=== PATIENT | female | born 1930 | race Two or more races ===

== ENCOUNTER 2017-07-21 16:14 | Emergency (ER) | payer MEDICARE, MEDICAID ==
[~2017-07-21] VITALS: Ht 162.6 cm; Wt 59.0 kg
[~2017-07-21 16:14] MED LIST: LEVO500T21 PO
[2017-07-21 16:21] VITALS: BP 150/96
[2017-07-21 17:40] LABS: Urine Bacteria NONE SEEN /hpf (None Seen); Urine Blood 1+ /uL (Negative); Urine Specific Gravity 1.015 (1.001-1.035); Urine WBC 2 /hpf (0 - 5)
== END 2017-07-21 22:09 | disposition home or self-care (01) ==
LOC: EDBD 16:14 → ER 16:23
DX: F03.90 Unspecified dementia, unspecified severity, without behavioral disturbance, psychotic disturbance, mood disturbance, and anxiety (principal); I10 Essential (primary) hypertension; Z86.73 Personal history of transient ischemic attack (TIA), and cerebral infarction without residual deficits
CPT/HCPCS: 81001; 93005

== ENCOUNTER 2017-07-31 10:07 | Inpatient (IN) | payer MEDICARE, MEDICAID ==
[~2017-07-31] VITALS: Ht 152.4 cm; Wt 55.1 kg
[2017-07-31 11:54] LABS: Basophils # (auto) 0 uL; Basophils % (auto) 0.3 % (0.0-2.0); Eosinophils # (auto) 0 uL; Eosinophils % (auto) 0.4 % (0.0-7.0); Hematocrit 34.8 % (36.0-46.0); Hemoglobin 11.5 g/dL (12.2-16.2); Lymphocytes # (auto) 0.5 uL; Mean Corpuscular Hemoglobin 29.7 pg (28.0-32.0); Mean Corpuscular Hgb Conc. 33.1 g/dL (32.0-36.0); Mean Corpuscular Volume 89.8 fL (80.0-100.0); Monocytes # (auto) 0.9 uL; Monocytes % (auto) 9.5 % (0.0-12.0); Neutrophils # (auto) 7.6 uL; Neutrophils % (auto) 83.8 % (37.0-80.0); Nucleated Red Blood Cells % 0.1 %; Platelet Count (auto) 359 10^3/uL (140-450); Red Blood Cells 3.88 10^6/uL (4.0-5.20); Red Cell Distribution Width 14.7 % (11.8-14.3); White Blood Cell 9.1 10^3/uL (4.4-10.8)
[2017-07-31] MEDS ORDERED: SODIUM CHLORIDE 0.9% 1,000 ML IVB ONE (12:07)
[2017-07-31 12:51] LABS: INR 1.07 (0.9-1.15); Partial Thromboplastin Time 28.1 sec (22.64-33.71); Prothrombin Time 11.7 sec (9.37-12.3)
[2017-07-31 12:53] LABS: Urine Bacteria NONE SEEN /hpf (None Seen); Urine Blood Negative /uL (Negative); Urine Specific Gravity 1.028 (1.001-1.035); Urine WBC 1 /hpf (0 - 5)
[2017-07-31 13:53] LABS: Potassium 3.8 mmol/L (3.5-5.1)
[2017-07-31 13:54] LABS: Albumin 3.1 g/dL (3.4-5.0); BUN/Creatinine Ratio 17.6; Bilirubin, Total 0.4 mg/dL (0.2-1.0); Calcium 8.6 mg/dL (8.5-10.1); Total Protein 6.7 g/dL (6.4-8.2)
[2017-07-31] MEDS ORDERED: ONDANSETRON HCL 4 MG/2 ML VIAL IV ONE (14:00)
[2017-07-31] MEDS ORDERED: MORPHINE SULF INJ 2 MG/ML SYRINGE 1ML IV ONE (14:00)
[2017-07-31] MEDS ORDERED: TEMAZEPAM 15 MG CAP PO PRN (14:30)
[2017-07-31] MEDS ORDERED: ACETAMINOPHEN 500 MG TAB PO PRN (14:30)
[2017-07-31] MEDS: SODIUM CHLORIDE 0.9% 1,000 ML IV SCH (14:49)
[2017-07-31] MEDS: MORPHINE SULF INJ 2 MG/ML SYRINGE 1ML IV PRN (17:34)
[2017-07-31] MEDS: LORazepam 0.5 MG TAB PO PRN (17:35)
[2017-07-31] MEDS: PROMETHAZINE HCL 25 MG/ML 1ML IV PRN (17:35)
[2017-07-31] MEDS ORDERED: LORazepam 2MG/ML-1ML VIAL ONE (17:44)
[2017-07-31] MEDS ORDERED: LORazepam 2MG/ML-1ML VIAL IV ONE (18:00)
[2017-08-01] MEDS: SODIUM CHLORIDE 0.9% 1,000 ML IV SCH ×2 (02:51→14:00)
[2017-08-01] MEDS ORDERED: cefTRIAXone 1GM/10ml IVPUSH 10 ML IV ONE (13:45)
[2017-08-01] MEDS: PROMETHAZINE HCL 25 MG/ML 1ML IV PRN ×2 (15:05→23:22)
[2017-08-01] MEDS: MORPHINE SULF INJ 2 MG/ML SYRINGE 1ML IV PRN ×2 (15:05→23:22)
[2017-08-01] MEDS: LORazepam 0.5 MG TAB PO PRN (16:38)
[2017-08-01 22:53] VITALS: BP 139/81
[2017-08-01 23:00] VITALS: BP 139/81
[2017-08-02] MEDS: PROMETHAZINE HCL 25 MG/ML 1ML IV PRN (05:30)
[2017-08-02] MEDS: MORPHINE SULF INJ 2 MG/ML SYRINGE 1ML IV PRN ×2 (05:43→21:25)
[2017-08-02] MEDS: SODIUM CHLORIDE 0.9% 1,000 ML IV SCH ×2 (05:43→16:15)
[2017-08-02 06:22] LABS: Basophils # (auto) 0 uL; Basophils % (auto) 0.2 % (0.0-2.0); Eosinophils # (auto) 0.1 uL; Eosinophils % (auto) 0.7 % (0.0-7.0); Hematocrit 35.4 % (36.0-46.0); Hemoglobin 11.7 g/dL (12.2-16.2); Lymphocytes % (auto) 11.3 % (10.0-50.0); Mean Corpuscular Hemoglobin 29.9 pg (28.0-32.0); Mean Corpuscular Volume 90.4 fL (80.0-100.0); Monocytes # (auto) 1.1 uL; Monocytes % (auto) 12.8 % (0.0-12.0); Neutrophils # (auto) 6.3 uL; Platelet Count (auto) 353 10^3/uL (140-450); Red Blood Cells 3.91 10^6/uL (4.0-5.20); Red Cell Distribution Width 14.9 % (11.8-14.3); White Blood Cell 8.4 10^3/uL (4.4-10.8)
[2017-08-02 08:00] VITALS: BP 135/82
[2017-08-02] MEDS ORDERED: INFLUENZA QUAD 2017-2018 0.5 ML SYRG IM ONE (08:30)
[2017-08-02 09:00] VITALS: BP 135/82
[2017-08-02] MEDS: cefTRIAXone 1GM/10ml IVPUSH 10 ML IV SCH (09:00)
[2017-08-02] MEDS ORDERED: ceFAZolin 1GM/50ML 50 ML IV ONE (09:33)
[2017-08-02] MEDS ORDERED: ENOXAPARIN SOD 30 MG/0.3 ML SYRINGE SC SCH (10:00)
[2017-08-02] MEDS ORDERED: MORPHINE SULF(PF) 0.5MG/ML 10ML VIAL ONE (10:15)
[2017-08-02] MEDS ORDERED: MIDAZOLAM HCL 1MG/1ML-2 ML VIAL ONE (10:16)
[2017-08-02] MEDS ORDERED: ePHEDrine SULFATE 50 MG/ML AMP ONE (10:39)
[2017-08-02] MEDS ORDERED: STERILE WATER 10 ML ONE ×2 (10:39→11:28)
[2017-08-02] MEDS ORDERED: PROPOFOL 10 MG/ML 20 ML IV ONE (10:45)
[2017-08-02] MEDS ORDERED: cefTRIAXone 1GM/50ML D5W 50 ML IV ONE (10:55)
[2017-08-02] MEDS ORDERED: PHENYLEPHRINE HCL 10 MG/ML VL ONE (11:28)
[2017-08-02] MEDS ORDERED: ONDANSETRON HCL 4 MG/2 ML VIAL IV PRN (12:00)
[2017-08-02] MEDS ORDERED: diphenhdrAMINE HCL 50 MG/1 ML VL IV PRN (12:00)
[2017-08-02] MEDS ORDERED: hydrALAZINE HCL 20 MG/ML VL IV PRN (12:00)
[2017-08-02] MEDS ORDERED: ePHEDrine SULFATE 50 MG/ML AMP IV PRN (12:00)
[2017-08-02] MEDS ORDERED: ONDANSETRON HCL 4 MG/2 ML VIAL IV ONE (12:00)
[2017-08-02] MEDS ORDERED: HYDROmorphone HCL 2 MG/ML VL IV PRN (12:00)
[2017-08-02] MEDS ORDERED: NALOXONE HCL 0.4 MG/ML VIAL IV PRN ×2 (12:00)
[2017-08-02 14:20] VITALS: BP 120/66
[2017-08-02] MEDS: ceFAZolin 1GM/50ML 50 ML IV SCH (16:27)
[2017-08-02 17:00] VITALS: BP 164/82
[2017-08-02 18:47] VITALS: BP 147/71
[2017-08-03] MEDS: ceFAZolin 1GM/50ML 50 ML IV SCH ×2 (00:51→09:05)
[2017-08-03] MEDS: LORazepam 0.5 MG TAB PO PRN ×2 (01:44→13:38)
[2017-08-03] MEDS: MORPHINE SULF INJ 2 MG/ML SYRINGE 1ML IV PRN ×3 (02:03→13:38)
[2017-08-03] MEDS: SODIUM CHLORIDE 0.9% 1,000 ML IV SCH ×2 (04:34→17:19)
[2017-08-03 05:32] LABS: Hematocrit 30.5 % (36.0-46.0); Hemoglobin 10.4 g/dL (12.2-16.2)
[2017-08-03 09:00] VITALS: BP 151/83
[2017-08-03] MEDS: ENOXAPARIN SOD 40 MG/0.4 ML SYRINGE SC SCH (09:03)
[2017-08-03] MEDS: cefTRIAXone 1GM/10ml IVPUSH 10 ML IV SCH (09:05)
[2017-08-03 13:00] VITALS: BP 154/84
[2017-08-03 17:00] VITALS: BP 151/81
[2017-08-03 22:00] VITALS: BP 113/62
[2017-08-04 05:01] VITALS: BP 122/68
[2017-08-04 05:52] LABS: Basophils # (auto) 0 uL; Basophils % (auto) 0.3 % (0.0-2.0); Eosinophils # (auto) 0.1 uL; Hematocrit 27.9 % (36.0-46.0); Hemoglobin 9.5 g/dL (12.2-16.2); Lymphocytes # (auto) 0.8 uL; Lymphocytes % (auto) 8.7 % (10.0-50.0); Mean Corpuscular Hemoglobin 30.3 pg (28.0-32.0); Mean Corpuscular Volume 89.3 fL (80.0-100.0); Monocytes # (auto) 1.1 uL; Monocytes % (auto) 11.7 % (0.0-12.0); Neutrophils # (auto) 7.3 uL; Neutrophils % (auto) 78.3 % (37.0-80.0); Platelet Count (auto) 300 10^3/uL (140-450); Red Blood Cells 3.13 10^6/uL (4.0-5.20); Red Cell Distribution Width 14.4 % (11.8-14.3); White Blood Cell 9.4 10^3/uL (4.4-10.8)
[2017-08-04] MEDS: SODIUM CHLORIDE 0.9% 1,000 ML IV SCH ×2 (06:09→18:07)
[2017-08-04 06:16] LABS: BUN/Creatinine Ratio 14.6; Calcium 7.5 mg/dL (8.5-10.1); Potassium 3.3 mmol/L (3.5-5.1)
[2017-08-04 08:00] VITALS: BP 105/56
[2017-08-04] MEDS: cefTRIAXone 1GM/10ml IVPUSH 10 ML IV SCH (08:40)
[2017-08-04] MEDS: BOOST 8 ounces PO SCH ×3 (08:45→18:06)
[2017-08-04 09:00] VITALS: BP 105/56
[2017-08-04] MEDS: MEGESTROL ACET 400MG/10ML ORAL SUSP GT SCH ×2 (10:49→21:36)
[2017-08-04] MEDS: ENOXAPARIN SOD 40 MG/0.4 ML SYRINGE SC SCH (10:50)
[2017-08-04] MEDS: HYDROcodone-ACET 5/325MG TAB PO PRN (12:14)
[2017-08-04 13:00] VITALS: BP 96/59
[2017-08-04 17:26] VITALS: BP 99/55
[2017-08-04 21:40] VITALS: BP 100/64
[2017-08-04] MEDS: LACTULOSE 20Gm/30ML SOLN PO PRN (21:58)
[2017-08-05] VITALS (7 sets, daily range): BP systolic 90–121; BP diastolic 44–66
[2017-08-05] MEDS: SODIUM CHLORIDE 0.9% 1,000 ML IV SCH ×2 (05:41→19:19)
[2017-08-05 06:13] LABS: Basophils # (auto) 0 uL; Eosinophils # (auto) 0.2 uL; Hemoglobin 8.3 g/dL (12.2-16.2); Lymphocytes # (auto) 1.1 uL; Monocytes # (auto) 0.8 uL; Platelet Count (auto) 296 10^3/uL (140-450); Red Cell Distribution Width 14.6 % (11.8-14.3)
[2017-08-05 06:16] LABS: Basophils % (auto) 0.3 % (0.0-2.0); Eosinophils % (auto) 2.5 % (0.0-7.0); Hematocrit 24.6 % (36.0-46.0); Lymphocytes % (auto) 15.4 % (10.0-50.0); Mean Corpuscular Hemoglobin 30.4 pg (28.0-32.0); Mean Corpuscular Hgb Conc. 33.9 g/dL (32.0-36.0); Mean Corpuscular Volume 89.5 fL (80.0-100.0); Monocytes % (auto) 11.3 % (0.0-12.0); Neutrophils % (auto) 70.5 % (37.0-80.0); Red Blood Cells 2.75 10^6/uL (4.0-5.20)
[2017-08-05 06:41] LABS: Albumin 1.9 g/dL (3.4-5.0); BUN/Creatinine Ratio 20.3; Bilirubin, Total 0.6 mg/dL (0.2-1.0); Calcium 7.5 mg/dL (8.5-10.1); Potassium 3.1 mmol/L (3.5-5.1); Total Protein 5.1 g/dL (6.4-8.2)
[2017-08-05] MEDS: cefTRIAXone 1GM/10ml IVPUSH 10 ML IV SCH (08:26)
[2017-08-05] MEDS: BOOST 8 ounces PO SCH ×3 (08:26→18:43)
[2017-08-05] MEDS ORDERED: POTASSIUM CHL 10% (20 MEQ/15ML) 15ml ORAL SOLN PO ONE (10:00)
[2017-08-05] MEDS: ENOXAPARIN SOD 40 MG/0.4 ML SYRINGE SC SCH (10:04)
[2017-08-05] MEDS: MEGESTROL ACET 400MG/10ML ORAL SUSP GT SCH ×2 (10:05→22:00)
[2017-08-05 11:53] LABS: Hemoglobin 9.5 g/dL (12.2-16.2)
[2017-08-05] MEDS: Boost Breeze 8 Ounces PO SCH (18:43)
[2017-08-06 06:21] VITALS: BP 152/63
[2017-08-06 07:32] LABS: Hematocrit 27.6 % (36.0-46.0); Hemoglobin 9.2 g/dL (12.2-16.2)
[2017-08-06 07:55] LABS: BUN/Creatinine Ratio 17.6; Calcium 8.1 mg/dL (8.5-10.1); Potassium 3.5 mmol/L (3.5-5.1)
[2017-08-06] MEDS: ENOXAPARIN SOD 40 MG/0.4 ML SYRINGE SC SCH (09:05)
[2017-08-06] MEDS: MEGESTROL ACET 400MG/10ML ORAL SUSP GT SCH ×2 (09:05→21:21)
[2017-08-06] MEDS: LACTULOSE 20Gm/30ML SOLN PO PRN (09:05)
[2017-08-06] MEDS: cefTRIAXone 1GM/10ml IVPUSH 10 ML IV SCH (09:06)
[2017-08-06] MEDS: SODIUM CHLORIDE 0.9% 1,000 ML IV SCH ×2 (09:06→21:21)
[2017-08-06] MEDS: Boost Breeze 8 Ounces PO SCH ×3 (09:06→18:00)
[2017-08-06] MEDS: BOOST 8 ounces PO SCH ×3 (09:06→18:00)
[2017-08-06 13:00] VITALS: BP 122/68
[2017-08-06 17:00] VITALS: BP 122/57
[2017-08-06 22:00] VITALS: BP 107/56
[2017-08-07 05:00] VITALS: BP 115/67
[2017-08-07] MEDS: SODIUM CHLORIDE 0.9% 1,000 ML IV SCH ×2 (05:11→21:19)
[2017-08-07 09:00] VITALS: BP 143/61
[2017-08-07] MEDS: cefTRIAXone 1GM/10ml IVPUSH 10 ML IV SCH (09:36)
[2017-08-07] MEDS: MEGESTROL ACET 400MG/10ML ORAL SUSP GT SCH ×2 (09:36→21:28)
[2017-08-07] MEDS: ENOXAPARIN SOD 40 MG/0.4 ML SYRINGE SC SCH (09:36)
[2017-08-07] MEDS: BOOST 8 ounces PO SCH ×3 (09:36→18:03)
[2017-08-07] MEDS: Boost Breeze 8 Ounces PO SCH ×3 (09:37→18:03)
[2017-08-07 13:00] VITALS: BP 110/55
[2017-08-07 17:00] VITALS: BP 125/63
[2017-08-07 22:02] VITALS: BP 101/56
[2017-08-08 04:57] VITALS: BP 124/68
[2017-08-08 08:00] VITALS: BP 119/63
[2017-08-08] MEDS: BOOST 8 ounces PO SCH ×3 (08:02→18:46)
[2017-08-08] MEDS: Boost Breeze 8 Ounces PO SCH ×3 (08:02→18:47)
[2017-08-08] MEDS: MEGESTROL ACET 400MG/10ML ORAL SUSP GT SCH ×2 (09:51→22:05)
[2017-08-08] MEDS: ENOXAPARIN SOD 40 MG/0.4 ML SYRINGE SC SCH (09:51)
[2017-08-08] MEDS: cefTRIAXone 1GM/10ml IVPUSH 10 ML IV SCH (09:52)
[2017-08-08] MEDS: SODIUM CHLORIDE 0.9% 1,000 ML IV SCH ×2 (09:52→22:19)
[2017-08-08 12:00] VITALS: BP 126/45
[2017-08-08 17:00] VITALS: BP 114/62
[2017-08-08 22:00] VITALS: BP 100/58
[2017-08-09 05:00] VITALS: BP 113/72
[2017-08-09] MEDS: Boost Breeze 8 Ounces PO SCH ×3 (08:00→17:34)
[2017-08-09] MEDS: BOOST 8 ounces PO SCH ×2 (08:00→14:49)
[2017-08-09 09:00] VITALS: BP 99/54
[2017-08-09] MEDS: ENOXAPARIN SOD 40 MG/0.4 ML SYRINGE SC SCH (10:00)
[2017-08-09] MEDS: MEGESTROL ACET 400MG/10ML ORAL SUSP GT SCH ×2 (10:48→22:33)
[2017-08-09] MEDS: cefTRIAXone 1GM/10ml IVPUSH 10 ML IV SCH (10:49)
[2017-08-09 13:00] VITALS: BP 101/50
[2017-08-09] MEDS: SODIUM CHLORIDE 0.9% 1,000 ML IV SCH (14:48)
[2017-08-09 22:00] VITALS: BP 126/53
[2017-08-10] MEDS: SODIUM CHLORIDE 0.9% 1,000 ML IV SCH ×2 (03:58→11:45)
[2017-08-10 05:00] VITALS: BP 120/47
[2017-08-10 09:00] VITALS: BP 103/55
[2017-08-10] MEDS: Boost Breeze 8 Ounces PO SCH ×3 (11:43→18:14)
[2017-08-10] MEDS: BOOST 8 ounces PO SCH ×4 (11:43→18:14)
[2017-08-10] MEDS: ENOXAPARIN SOD 40 MG/0.4 ML SYRINGE SC SCH (11:44)
[2017-08-10] MEDS: MEGESTROL ACET 400MG/10ML ORAL SUSP GT SCH ×2 (11:44→21:35)
[2017-08-10] MEDS: cefTRIAXone 1GM/10ml IVPUSH 10 ML IV SCH (11:44)
[2017-08-10 13:00] VITALS: BP 119/54
[2017-08-10 14:31] LABS: Hematocrit 29.4 % (36.0-46.0); Hemoglobin 9.6 g/dL (12.2-16.2)
[2017-08-10 17:00] VITALS: BP 136/57
[2017-08-10 22:00] VITALS: BP 101/54
[2017-08-11] MEDS: SODIUM CHLORIDE 0.9% 1,000 ML IV SCH ×2 (00:49→14:04)
[2017-08-11 05:17] VITALS: BP 121/68
[2017-08-11 09:00] VITALS: BP 108/48
[2017-08-11] MEDS: Boost Breeze 8 Ounces PO SCH ×2 (09:08→12:19)
[2017-08-11] MEDS: BOOST 8 ounces PO SCH ×2 (09:08→12:19)
[2017-08-11] MEDS: cefTRIAXone 1GM/10ml IVPUSH 10 ML IV SCH (09:09)
[2017-08-11] MEDS: MEGESTROL ACET 400MG/10ML ORAL SUSP GT SCH ×2 (09:09→22:00)
[2017-08-11] MEDS: ENOXAPARIN SOD 40 MG/0.4 ML SYRINGE SC SCH (09:09)
[2017-08-11 13:00] VITALS: BP 103/59
[2017-08-11 18:18] VITALS: BP 127/70
[2017-08-11 20:00] VITALS: BP 97/69
[2017-08-11 22:00] VITALS: BP 97/69
[2017-08-12] MEDS: SODIUM CHLORIDE 0.9% 1,000 ML IV SCH ×2 (03:06→18:15)
[2017-08-12 05:00] VITALS: BP 108/54
[2017-08-12] MEDS: HYDROcodone-ACET 5/325MG TAB PO PRN (05:11)
[2017-08-12 09:00] VITALS: BP 133/78
[2017-08-12] MEDS: ENOXAPARIN SOD 40 MG/0.4 ML SYRINGE SC SCH (10:00)
[2017-08-12] MEDS: MEGESTROL ACET 400MG/10ML ORAL SUSP GT SCH (11:16)
[2017-08-12] MEDS: cefTRIAXone 1GM/10ml IVPUSH 10 ML IV SCH (11:16)
[2017-08-12 13:00] VITALS: BP 105/69
[2017-08-12 17:00] VITALS: BP 120/68
[2017-08-12] MEDS ORDERED: MORPHINE SULFATE 10 MG/ML INJ 1ML SDV IV PRN (18:45)
== END 2017-08-12 20:30 | DRG 470 ==
LOC: EDBD 10:07 → ER 10:07 → OVERFLOW 10:08 → WEST WING 08-01 22:40
PROVIDERS: ADMIT Internal Medicine; ATTEND Internal Medicine
PROC: 0SRS01Z Replacement of Left Hip Joint, Femoral Surface with Metal Synthetic Substitute, Open Approach (ICD-10-PCS; principal; 2017-08-03)
PROC: 0MBM0ZZ Excision of Left Hip Bursa and Ligament, Open Approach (ICD-10-PCS; 2017-08-03)
DX: S72.012A Unspecified intracapsular fracture of left femur, initial encounter for closed fracture (principal); E44.0 Moderate protein-calorie malnutrition; I48.0 Paroxysmal atrial fibrillation; D64.9 Anemia, unspecified; F03.90 Unspecified dementia, unspecified severity, without behavioral disturbance, psychotic disturbance, mood disturbance, and anxiety; F32.9 Major depressive disorder, single episode, unspecified; F41.9 Anxiety disorder, unspecified; J44.9 Chronic obstructive pulmonary disease, unspecified; M70.72 Other bursitis of hip, left hip; H35.30 Unspecified macular degeneration; I12.9 Hypertensive chronic kidney disease with stage 1 through stage 4 chronic kidney disease, or unspecified chronic kidney disease; N18.3 Chronic kidney disease, stage 3 (moderate); W06.XXXA Fall from bed, initial encounter; Y92.009 Unspecified place in unspecified non-institutional (private) residence as the place of occurrence of the external cause; Z82.49 Family history of ischemic heart disease and other diseases of the circulatory system; Z86.73 Personal history of transient ischemic attack (TIA), and cerebral infarction without residual deficits; Z87.11 Personal history of peptic ulcer disease; Z90.710 Acquired absence of both cervix and uterus; Z23 Encounter for immunization; Z98.49 Cataract extraction status, unspecified eye; Y93.89 Activity, other specified; Z90.49 Acquired absence of other specified parts of digestive tract; Z88.1 Allergy status to other antibiotic agents
CPT/HCPCS: 36415; 51702; 71045; 72192; 73501; 73502; 80048; 80053; 81001; 83735; 85014; 85018; 85025; 85610; 85730; 86850; 86900; 86901; 93005; 93306; 94761; 96361; 96374; 96375; 97110; 97116; 97163; 97530; A4565; J0690; J0696; J2250; J2405; J2704

== ENCOUNTER 2017-10-08 18:11 | Inpatient (IN) | payer MEDICARE, MEDICAID ==
[~2017-10-08] VITALS: Ht 152.4 cm; Wt 51.8 kg
[2017-10-08] MEDS ORDERED: SODIUM CHLORIDE 0.9% 1,000 ML IVB ONE (18:41)
[2017-10-08 20:01] LABS: Basophils # (auto) 0 uL; Basophils % (auto) 0.4 % (0.0-2.0); Eosinophils # (auto) 0.1 uL; Eosinophils % (auto) 1.4 % (0.0-7.0); Hematocrit 36.1 % (36.0-46.0); Hemoglobin 11.9 g/dL (12.2-16.2); Lymphocytes # (auto) 1.3 uL; Lymphocytes % (auto) 19.4 % (10.0-50.0); Mean Corpuscular Hemoglobin 31.2 pg (28.0-32.0); Mean Corpuscular Hgb Conc. 32.8 g/dL (32.0-36.0); Mean Corpuscular Volume 95.1 fL (80.0-100.0); Monocytes # (auto) 0.6 uL; Monocytes % (auto) 9.3 % (0.0-12.0); Neutrophils # (auto) 4.5 uL; Neutrophils % (auto) 69.5 % (37.0-80.0); Nucleated Red Blood Cells % 0.1 %; Platelet Count (auto) 268 10^3/uL (140-450); Red Blood Cells 3.79 10^6/uL (4.0-5.20); Red Cell Distribution Width 17.1 % (11.8-14.3); White Blood Cell 6.5 10^3/uL (4.4-10.8)
[2017-10-08 20:06] LABS: Alanine Aminotransferase 30 U/L (13-56); Albumin 3.4 g/dL (3.4-5.0); Alkaline Phosphatase 92 U/L (45-117); Anion Gap 6 (5-15); Aspartate Aminotransferase 17 U/L (15-37); Bilirubin, Total 0.5 mg/dL (0.2-1.0); Blood Urea Nitrogen 18 mg/dL (7-18); Carbon Dioxide 22 mmol/L (21-32); Chloride 113 mmol/L (98-107); Creatine Kinase IFCC 78 U/L (26-192); GFR African American 76 mL/min; GFR Non-African American 63 mL/min; Glucose 111 mg/dL (74-106); INR 1.06 (0.9-1.15); Magnesium 2.8 mg/dL (1.6-2.6); Partial Thromboplastin Time 22.6 sec (22.64-33.71); Potassium 3.9 mmol/L (3.5-5.1); Prothrombin Time 11.6 sec (9.37-12.3); Sodium 141 mmol/L (136-145)
[2017-10-08] MEDS ORDERED: ONDANSETRON HCL 4 MG/2 ML VIAL IV PRN (22:45)
[2017-10-08] MEDS ORDERED: ACETAMINOPHEN 500 MG TAB PO PRN (22:45)
[2017-10-08] MEDS ORDERED: diphenhdrAMINE HCL 50 MG/1 ML VL IV ONE (23:15)
[2017-10-09] MEDS ORDERED: LORazepam 2MG/ML-1ML VIAL IV ONE (04:30)
[2017-10-09 05:02] LABS: Basophils # (auto) 0 uL; Basophils % (auto) 0.5 % (0.0-2.0); Eosinophils # (auto) 0.1 uL; Eosinophils % (auto) 0.7 % (0.0-7.0); Hemoglobin 12.4 g/dL (12.2-16.2); Lymphocytes # (auto) 1.4 uL; Lymphocytes % (auto) 18.7 % (10.0-50.0); Mean Corpuscular Hemoglobin 31.8 pg (28.0-32.0); Mean Corpuscular Hgb Conc. 33.7 g/dL (32.0-36.0); Mean Corpuscular Volume 94.3 fL (80.0-100.0); Monocytes # (auto) 0.7 uL; Monocytes % (auto) 8.8 % (0.0-12.0); Neutrophils # (auto) 5.3 uL; Neutrophils % (auto) 71.3 % (37.0-80.0); Platelet Count (auto) 247 10^3/uL (140-450); Red Blood Cells 3.92 10^6/uL (4.0-5.20); Red Cell Distribution Width 17.1 % (11.8-14.3); White Blood Cell 7.5 10^3/uL (4.4-10.8)
[2017-10-09 05:16] LABS: BUN/Creatinine Ratio 16.3; Potassium 3.8 mmol/L (3.5-5.1)
[2017-10-09 09:20] LABS: Urine Bacteria NONE SEEN /hpf (None Seen); Urine Blood 1+ /uL (Negative); Urine Mucus FEW (None Seen); Urine Specific Gravity 1.017 (1.001-1.035); Urine WBC 7 /hpf (0 - 5)
[2017-10-09] MEDS ORDERED: TEMA15CA PO (12:18)
[2017-10-09 20:47] VITALS: BP 136/89
[2017-10-09] MEDS: TEMAZEPAM 15 MG CAP PO PRN (23:52)
[2017-10-10 05:43] VITALS: BP 113/71
[2017-10-10 09:00] VITALS: BP 129/84
[2017-10-10 13:00] VITALS: BP 131/62
[2017-10-10 17:00] VITALS: BP 120/75
[2017-10-10] MEDS: HYDROcodone-ACET 5/325MG TAB PO PRN (20:04)
[2017-10-10 22:00] VITALS: BP 118/73
[2017-10-10] MEDS: TEMAZEPAM 15 MG CAP PO PRN (22:07)
[2017-10-11 05:00] VITALS: BP 157/89
[2017-10-11] MEDS: HYDROcodone-ACET 5/325MG TAB PO PRN ×2 (06:58→12:41)
[2017-10-11 09:00] VITALS: BP 149/102
[2017-10-11 13:00] VITALS: BP 148/88
[2017-10-11 13:08] VITALS: BP 138/83
== END 2017-10-11 13:30 | DRG 689 ==
LOC: ER 18:11 → EDBD 18:11 → OVERFLOW 18:12 → WEST WING 10-09 12:00
PROVIDERS: ADMIT Nurse Practitioner Family; ATTEND Internal Medicine
DX: N39.0 Urinary tract infection, site not specified (principal); G93.40 Encephalopathy, unspecified; D64.9 Anemia, unspecified; F03.90 Unspecified dementia, unspecified severity, without behavioral disturbance, psychotic disturbance, mood disturbance, and anxiety; M16.12 Unilateral primary osteoarthritis, left hip; W18.39XA Other fall on same level, initial encounter; Z66 Do not resuscitate; Z96.642 Presence of left artificial hip joint; Z82.49 Family history of ischemic heart disease and other diseases of the circulatory system; Z91.81 History of falling; Y93.89 Activity, other specified; Y92.89 Other specified places as the place of occurrence of the external cause
CPT/HCPCS: 36415; 51702; 70450; 71045; 72192; 80048; 80053; 81001; 82550; 83735; 84484; 85025; 85610; 85730; 87086; 93005; 94761; 96374; 96375; J2405